=== PATIENT | female | born 1950 | race Caucasian/White ===

== ENCOUNTER → 2021-04-03 | Outpatient (CLI) | payer OTHER ==
[2021-04-04 09:54] LABS: Stool Occult Bld Immuno 1 Positive (NEGATIVE)
== END | disposition home or self-care (01) ==
LOC: LAB SHORT 09:50 → LAB FUT 03-19 14:00
PROVIDERS: Family Medicine
DX: Z12.11 Encounter for screening for malignant neoplasm of colon (principal)
CPT/HCPCS: G0328

== ENCOUNTER 2021-11-29 02:04 | Day surgery (SDC) | payer OTHER | END 2021-11-29 23:38 | disposition home or self-care (01) | LOC: WOUND 02:04 | DX: T81.31XA Disruption of external operation (surgical) wound, not elsewhere classified, initial encounter (principal); L97.825 Non-pressure chronic ulcer of other part of left lower leg with muscle involvement without evidence of necrosis; E05.00 Thyrotoxicosis with diffuse goiter without thyrotoxic crisis or storm; Z88.1 Allergy status to other antibiotic agents; Z87.891 Personal history of nicotine dependence; K74.60 Unspecified cirrhosis of liver; Z96.642 Presence of left artificial hip joint; E78.5 Hyperlipidemia, unspecified; I12.9 Hypertensive chronic kidney disease with stage 1 through stage 4 chronic kidney disease, or unspecified chronic kidney disease; N18.9 Chronic kidney disease, unspecified | CPT/HCPCS: A9270; G0463 ==

== ENCOUNTER 2021-12-06 02:01 | Day surgery (SDC) | payer OTHER | END 2021-12-06 23:36 | disposition home or self-care (01) | LOC: WOUND 02:01 | DX: T81.31XA Disruption of external operation (surgical) wound, not elsewhere classified, initial encounter (principal); L97.825 Non-pressure chronic ulcer of other part of left lower leg with muscle involvement without evidence of necrosis; S81.802A Unspecified open wound, left lower leg, initial encounter; X58.XXXA Exposure to other specified factors, initial encounter | CPT/HCPCS: A9270 ==

== ENCOUNTER 2021-12-13 01:13 | Day surgery (SDC) | payer OTHER ==
[2021-12-15] MEDS ORDERED: DOXAZOSIN MESYLA8 MG PO (10:59)
[2021-12-15] MEDS ORDERED: ZOCOR20 MG PO (10:59)
[2021-12-15] MEDS ORDERED: PROP60 PO (10:59)
[2021-12-15] MEDS ORDERED: METHI10 PO (10:59)
[2021-12-15] MEDS ORDERED: LISI5 PO (11:00)
== END 2021-12-13 23:04 | disposition home or self-care (01) ==
LOC: WOUND 01:13
DX: L97.825 Non-pressure chronic ulcer of other part of left lower leg with muscle involvement without evidence of necrosis (principal); S81.802D Unspecified open wound, left lower leg, subsequent encounter; X58.XXXD Exposure to other specified factors, subsequent encounter
CPT/HCPCS: G0463

== ENCOUNTER 2021-12-20 02:24 | Day surgery (SDC) | payer OTHER ==
[~2021-12-20 02:24] MED LIST: DOXAZOSIN MESYLA8 MG PO; LISI5 PO; METHI10 PO; PROP60 PO; ZOCOR20 MG PO
== END 2021-12-20 23:54 | disposition home or self-care (01) ==
LOC: WOUND 02:24
DX: S81.802A Unspecified open wound, left lower leg, initial encounter (principal); X58.XXXA Exposure to other specified factors, initial encounter; L97.825 Non-pressure chronic ulcer of other part of left lower leg with muscle involvement without evidence of necrosis
CPT/HCPCS: A9270

== ENCOUNTER 2021-12-27 01:00 | Day surgery (SDC) | payer OTHER | END 2021-12-27 23:10 | disposition home or self-care (01) | LOC: WOUND 01:00 | DX: L97.825 Non-pressure chronic ulcer of other part of left lower leg with muscle involvement without evidence of necrosis (principal); S81.802D Unspecified open wound, left lower leg, subsequent encounter | CPT/HCPCS: A9270 ==

== ENCOUNTER 2022-01-13 01:00 | Day surgery (SDC) | payer OTHER | END 2022-01-13 23:40 | disposition home or self-care (01) | LOC: WOUND 01:00 | DX: T81.31XA Disruption of external operation (surgical) wound, not elsewhere classified, initial encounter (principal) | CPT/HCPCS: A9270 ==

== ENCOUNTER 2022-01-24 02:09 | Day surgery (SDC) | payer OTHER | END 2022-01-24 12:17 | disposition home or self-care (01) | LOC: ATC 02:09 | DX: E86.0 Dehydration (principal); C03.1 Malignant neoplasm of lower gum; C77.0 Secondary and unspecified malignant neoplasm of lymph nodes of head, face and neck; I12.9 Hypertensive chronic kidney disease with stage 1 through stage 4 chronic kidney disease, or unspecified chronic kidney disease; N18.9 Chronic kidney disease, unspecified; E11.22 Type 2 diabetes mellitus with diabetic chronic kidney disease; E78.5 Hyperlipidemia, unspecified; D63.1 Anemia in chronic kidney disease; D63.0 Anemia in neoplastic disease; Z88.0 Allergy status to penicillin; Z88.1 Allergy status to other antibiotic agents | CPT/HCPCS: 96360; J7030 ==

== ENCOUNTER 2022-01-27 01:42 | Day surgery (SDC) | payer OTHER | END 2022-01-27 23:04 | disposition home or self-care (01) | LOC: WOUND 01:42 | DX: T81.32XA Disruption of internal operation (surgical) wound, not elsewhere classified, initial encounter (principal) | CPT/HCPCS: A9270 ==

== ENCOUNTER 2022-01-31 02:53 | Day surgery (SDC) | payer OTHER | END 2022-01-31 11:26 | disposition home or self-care (01) | LOC: ATC 02:53 | DX: C03.1 Malignant neoplasm of lower gum (principal); C77.0 Secondary and unspecified malignant neoplasm of lymph nodes of head, face and neck; D64.9 Anemia, unspecified; D70.1 Agranulocytosis secondary to cancer chemotherapy; I12.9 Hypertensive chronic kidney disease with stage 1 through stage 4 chronic kidney disease, or unspecified chronic kidney disease; E11.22 Type 2 diabetes mellitus with diabetic chronic kidney disease; N18.9 Chronic kidney disease, unspecified; E78.5 Hyperlipidemia, unspecified; Z96.642 Presence of left artificial hip joint; Z87.891 Personal history of nicotine dependence; Z88.0 Allergy status to penicillin; Z88.1 Allergy status to other antibiotic agents | CPT/HCPCS: 36415; 36430; 86850; 86900; 86901; 86923; J7040; P9016; Q5110 ==

== ENCOUNTER 2022-02-03 01:52 | Day surgery (SDC) | payer OTHER | END 2022-02-03 23:34 | disposition home or self-care (01) | LOC: WOUND 01:52 | DX: L97.825 Non-pressure chronic ulcer of other part of left lower leg with muscle involvement without evidence of necrosis (principal); E05.00 Thyrotoxicosis with diffuse goiter without thyrotoxic crisis or storm; S81.802D Unspecified open wound, left lower leg, subsequent encounter; T81.31XD Disruption of external operation (surgical) wound, not elsewhere classified, subsequent encounter; Y83.8 Other surgical procedures as the cause of abnormal reaction of the patient, or of later complication, without mention of misadventure at the time of the procedure | CPT/HCPCS: A9270; G0463 ==

== ENCOUNTER 2022-02-10 02:41 | Day surgery (SDC) | payer OTHER | END 2022-02-10 23:30 | disposition home or self-care (01) | LOC: WOUND 02:41 | DX: T81.32XA Disruption of internal operation (surgical) wound, not elsewhere classified, initial encounter (principal); L97.825 Non-pressure chronic ulcer of other part of left lower leg with muscle involvement without evidence of necrosis | CPT/HCPCS: A9270; G0463 ==

== ENCOUNTER 2022-02-14 00:24 | Day surgery (SDC) | payer OTHER | END 2022-02-14 12:21 | disposition home or self-care (01) | LOC: ATC 00:24 | DX: E56.0 Deficiency of vitamin E (principal); C03.1 Malignant neoplasm of lower gum; C77.0 Secondary and unspecified malignant neoplasm of lymph nodes of head, face and neck; E11.22 Type 2 diabetes mellitus with diabetic chronic kidney disease; I12.9 Hypertensive chronic kidney disease with stage 1 through stage 4 chronic kidney disease, or unspecified chronic kidney disease; N18.9 Chronic kidney disease, unspecified; E78.5 Hyperlipidemia, unspecified; Z96.642 Presence of left artificial hip joint; Z87.891 Personal history of nicotine dependence | CPT/HCPCS: J7030 ==

== ENCOUNTER 2022-02-17 02:42 | Day surgery (SDC) | payer OTHER | END 2022-02-17 23:20 | disposition home or self-care (01) | LOC: WOUND 02:42 | DX: T81.32XA Disruption of internal operation (surgical) wound, not elsewhere classified, initial encounter (principal); E05.00 Thyrotoxicosis with diffuse goiter without thyrotoxic crisis or storm | CPT/HCPCS: A9270 ==

== ENCOUNTER 2022-02-24 00:20 | Day surgery (SDC) | payer OTHER | END 2022-02-24 22:56 | disposition home or self-care (01) | LOC: WOUND 00:20 | DX: T81.32XA Disruption of internal operation (surgical) wound, not elsewhere classified, initial encounter (principal); T81.89XA Other complications of procedures, not elsewhere classified, initial encounter; L97.825 Non-pressure chronic ulcer of other part of left lower leg with muscle involvement without evidence of necrosis | CPT/HCPCS: G0463 ==

== ENCOUNTER 2022-03-03 02:59 | Day surgery (SDC) | payer OTHER | END 2022-03-03 23:41 | disposition home or self-care (01) | LOC: WOUND 02:59 | DX: T81.32XA Disruption of internal operation (surgical) wound, not elsewhere classified, initial encounter (principal); L97.825 Non-pressure chronic ulcer of other part of left lower leg with muscle involvement without evidence of necrosis | CPT/HCPCS: G0463 ==

== ENCOUNTER 2022-03-10 01:42 | Day surgery (SDC) | payer OTHER | END 2022-03-10 23:41 | disposition home or self-care (01) | LOC: WOUND 01:42 | DX: T81.32XA Disruption of internal operation (surgical) wound, not elsewhere classified, initial encounter (principal); L97.825 Non-pressure chronic ulcer of other part of left lower leg with muscle involvement without evidence of necrosis | CPT/HCPCS: G0463 ==

== ENCOUNTER 2022-03-17 01:55 | Day surgery (SDC) | payer OTHER | END 2022-03-17 23:34 | disposition home or self-care (01) | LOC: WOUND 01:55 | DX: L97.825 Non-pressure chronic ulcer of other part of left lower leg with muscle involvement without evidence of necrosis (principal); S81.802D Unspecified open wound, left lower leg, subsequent encounter; E05.00 Thyrotoxicosis with diffuse goiter without thyrotoxic crisis or storm; C41.1 Malignant neoplasm of mandible | CPT/HCPCS: G0463 ==

== ENCOUNTER 2022-03-24 01:19 | Day surgery (SDC) | payer OTHER | END 2022-03-24 23:40 | disposition home or self-care (01) | DX: T81.32XA Disruption of internal operation (surgical) wound, not elsewhere classified, initial encounter (principal) ==

== ENCOUNTER 2022-03-31 01:11 | Day surgery (SDC) | payer OTHER | END 2022-03-31 23:35 | disposition home or self-care (01) | LOC: WOUND 01:11 | DX: L97.825 Non-pressure chronic ulcer of other part of left lower leg with muscle involvement without evidence of necrosis (principal); S81.802A Unspecified open wound, left lower leg, initial encounter; X58.XXXA Exposure to other specified factors, initial encounter | CPT/HCPCS: G0463 ==

== ENCOUNTER 2022-06-11 07:57 | Day surgery (SDC) | payer OTHER ==
[~2022-06-11] VITALS: Ht 165.1 cm; Wt 70.0 kg
[~2022-06-11 07:57] MED LIST changes: +ACET500 PO; +FERSU300 PO; +ICAPS AREDS2 C1 EACH PO; +MULVITA PO; +VALA500 PO; +VITAMIN D310 MC4 PO
--- NOTE | 2022-06-11 09:07 | NUR ---
06/11/22 0907 Haroldo Freire HISTORY, CHART, MEDICATIONS AND ALLERGIES REVIEWED BEFORE START OF PROCEDURE. PATIENT CONFIRMS NPO STATUS AND AGREES WITH SCHEDULED PROCEDURE. 3-LEAD EKG REVIEWED WITH PHYSICIAN PRIOR TO START OF PROCEDURE. MONITOR INTACT WITH CONTINUOUS PULSE OXIMETRY,CAPNOGRAPHY, 3-LEAD EKG, INTERMITTENT BP. SUPPLEMENTAL O2 TO BE TITRATED THROUGHOUT PROCEDURE TO MAINTAIN O2 SATURATION ABOVE 90%. PATIENT DETERMINED TO BE ASA APPROPRIATE FOR PROPOFOL SEDATION PRIOR TO START OF PROCEDURE BY DR. SHETH.
--- NOTE | 2022-06-11 09:48 | NUR ---
PT ON RM AIR. BP LOW BUT PT DENIES ANY SYMPTOMS. PT ALERT AND COMMUNICATING APPROPRIATELY W STAFF AND SPOUSE. PT TOLERATING PO FLUIDS.
--- NOTE | 2022-06-11 10:08 | NUR ---
Discharge instructions reviewed with patient. Patient verbalizes understanding. Copy given to patient to take home. Patient States Post-Procedure ride home has been arranged. Discharged via wheelchair to private car for ride home.
== END 2022-06-11 23:42 | disposition home or self-care (01) ==
LOC: ORSCMMR 07:57 → ORD 09:00 → ORSCMMR 09:00
PROVIDERS: Surgery
PROC: 0DJD8ZZ Inspection of Lower Intestinal Tract, Via Natural or Artificial Opening Endoscopic (ICD-10-PCS; principal; 2022-06-11 09:00)
DX: K63.89 Other specified diseases of intestine (principal); R93.3 Abnormal findings on diagnostic imaging of other parts of digestive tract; K57.50 Diverticulosis of both small and large intestine without perforation or abscess without bleeding; Z85.818 Personal history of malignant neoplasm of other sites of lip, oral cavity, and pharynx; I12.9 Hypertensive chronic kidney disease with stage 1 through stage 4 chronic kidney disease, or unspecified chronic kidney disease; N18.32 Chronic kidney disease, stage 3b; D50.9 Iron deficiency anemia, unspecified; Z79.899 Other long term (current) drug therapy; Z87.891 Personal history of nicotine dependence
CPT/HCPCS: J2704; J7120

== ENCOUNTER 2022-06-12 06:56 | Inpatient (IN) | payer OTHER ==
[~2022-06-12] VITALS: Ht 165.1 cm; Wt 71.6 kg
--- NOTE | 2022-06-12 07:57 | NUR ---
Ambulatory in Day Surgery. History, Chart, Medications and Allergies reviewed before start of procedure. Patient confirms NPO status and agrees with scheduled surgery. Pre-Op teaching done. Pt verbalizes understanding. PT BELONGINGS PLACED UNDERNEATH GURNEY FOR SAFEKEEPING.
--- NOTE | 2022-06-12 18:33 | NUR ---
SHIFT SUMMARY PATIENT NEW ADMIT TO UNIT POST OP DAY [address] SHETH. ARRIVED TO ROOM ON BED. DROWSY BUT ANSWERED QUESTIONS APPROPRIATELY. REPORTED SEVERE ABD PAIN AND MILD NAUSEA. ABD WITH MIDLINE CONSUELO AND LAP SITES X3 ALL C/D/I. TOLERATEDING CLEAR LIQUIDS, NAUSEA IMPROVED AFTER JELLO. TOLERATING PO PAIN MEDS AND PAIN IS RATED 3/10 AT END OF SHIFT. SBA WITH FWW UP TO BSC. VOIDING WELL. HYPOACTIVE BT. POST VSS, WEANED O2 TO 2L NC AT THIS TIME. NOTED BRADYCARDIA AROUND 50 BPM. IV IN[address] AND [address] BRUCE GAVE ORDER FOR NO IV ACCES NEEDED. CHANGED ABX ORDERS TO PO. IV DC'D WNL.
[2022-06-13 04:21] LABS: BASOPHILS ABSOLUTE AUTO 0.01 K/mm3 (0.00-0.23); BASOPHILS PERCENT AUTO 0 % (0-2); EOSINOPHILS PERCENT AUTO 0 % (0-6); IMMATURE GRAN ABSOLUTE AUTO 0.02 K/mm3 (0.00-0.10); IMMATURE GRAN PERCENT AUTO 1 % (0-1); LYMPHOCYTES ABSOLUTE AUTO 0.41 K/mm3 (0.84-5.20); LYMPHOCYTES PERCENT AUTO 9 % (21-46); MONOCYTES ABSOLUTE AUTO 0.36 K/mm3 (0.16-1.47); MONOCYTES PERCENT AUTO 8 % (4-13); Mean Corpuscular HGB 30.4 pg (26.0-34.0); Mean Corpuscular HGB Conc 30.5 g/dL (31.5-36.5); Mean Corpuscular Volume 100 fL (80-100); Mean Platelet Volume 9.4 fL (9.1-12.4); NEUTROPHILS ABSOLUTE AUTO 3.56 K/mm3 (1.96-9.15); NEUTROPHILS PERCENT AUTO 82 % (41-73); Platelet Count 216 K/mm3 (150-400); RDW Coefficient Variation 14.8 % (11.7-14.2); RDW Standard Deviation 53.2 fL (35.1-46.3); Red Blood Cell Count 1.91 M/mm3 (3.80-5.20); White Blood Cell Count 4.36 K/mm3 (4.00-11.30)
[2022-06-13 04:31] LABS: Hemoglobin 5.8 g/dL (11.5-16.0)
[2022-06-13 05:23] LABS: Albumin, Blood 2.4 g/dL (3.4-5.0); Albumin/Globulin Ratio 0.8 (0.8-1.8); Bilirubin, Total 0.3 mg/dL (0.1-1.0); Bun/Creatinine Ratio 18.3 (12.0-20.0); Calcium, Blood 8.2 mg/dL (8.5-10.1); Creatinine, Blood 1.09 mg/dL (0.40-1.00); Globulin, Blood 3.1 g/dL (2.2-4.0); Potassium, Blood 3.9 mmol/L (3.5-5.5); Total Protein, Blood 5.5 g/dL (6.4-8.2)
--- NOTE | 2022-06-13 05:33 | NUR ---
HGB 5.8 NOTIFIED BY LAB OF CRITICAL LOW HGB 5.8. PT ASYMPTOMATIC WITH NO SIGNS OF BLEEDING, VSS. NOTIFIED DR SHETH WHO ORDERED REPEAT LABS FOR 1400 TODAY.
--- NOTE | 2022-06-13 05:37 | NUR ---
MEAT INSPECTOR SUMMARY PT IS POD 0 FOR R HEMICOLECTOMY. CONSUELO DRAIN TO MIDLINE ABD C/D/I WITH NO DRAINAGE NOTED. LAP SITES C/D/I WITH BANDAIDS. PT DENIES PASSING GAS BUT HAS AMBULATED TO BSC AND VOIDED SEVERAL TIMES TONIGHT. TOLERATING CLEAR LIQUID DIET WITH NO ISSUES. MEDICATED WITH NORCO 2 TABS FOR PAIN WITH GOOD PAIN CONTROL. VSS, WILL CONTINUE TO MONITOR.
--- NOTE | 2022-06-13 11:06 | NUR ---
"Spiritual Care | Pt. request Pt. is awake and welcomes my visit. Pt is pleasant but declines requesting spiritual care. Spouse then arrived. Pt. verbalized gratitude for the spiritual care visit."
[2022-06-13 14:16] LABS: Hematocrit 19.7 % (33.0-51.0)
--- NOTE | 2022-06-13 18:28 | NUR ---
SHIFT SUMMARY PT POD #1 FOR R HEMICOLECTOMY. PASSING SMALL AMOUNTS OF GAS BUT NO BM'S. ONE EPISODE OF EMESIS THIS SHIFT AND C/O SOME GERD. IND TO THE BSC. VSS. MIDLINE CONSUELO CDI.
--- NOTE | 2022-06-14 08:46 | NUR ---
SUMMARY PT MED WITH ZOFRAN X 2 THIS SHIFT.PT REQUESTS FOR APIGASTRIC DISCOMFORT-WHAT APPEARS TO PRESENT HEARTBURN/RELXUS.PT VERB UNDERSTANDING ZOFRAN IS FOR NAUSEA, BUT PT VERB IT HELPS ALTHOUGH NOT CURRENTLY C/O NAUSEA.
--- NOTE | 2022-06-14 17:46 | NUR ---
SUMMARY S/P R HEMICOLECTOMY, PT REPORTS HAVING MINIMAL PAIN, AMBULATES INDEPENDENTLY DOWN THE HALLS AND BATHROOM, GAIT STEADY AND TOLERATING WELL, REPORTS TOLERATING FULL LIQUIDS FAIRLY WELL, DENIES ANY NAUSEA, PASSING SOME GAS, OOB TO CHAIR X2 TODAY AND AMBULATED DOWN THE RECIO, NO ACUTE CHANGES THIS SHIFT.
--- NOTE | 2022-06-15 08:56 | NUR ---
SUMMARY PT CONT WITH C/O HEARTBURN WHILE EATING.REQUESITING SOMETHING OTHER THAN PRILOSEC.DAY RN AGREES TO FOLLOW UP ON REQUEST.
--- NOTE | 2022-06-15 11:45 | NUR ---
DR. SHETH NOTIFIED OF STOOL THAT APPEARED TO HAVE SOME BLOOD PRESENT, PLAN TO MONITOR FOR ANY CHANGES. DR. SHETH ALSO NOTIFIED OF CONTINUED HEART BURN. PER DR. SHETH MOBILIZE PT TO ENCOURAGE RETURN OF BOWEL FUNCTION. WILL CONTINUE TO MONITOR.
--- NOTE | 2022-06-15 17:18 | NUR ---
SHIFT SUMMARY PT IS POD#3 FROM LAP R HEMICOLECTOMY. PAIN MANAGED WITH PO PAIN MEDICATION. PT HAS ACTIVE BOWEL SOUNDS X4 QUADRANTS. SHE REPORTS PASSING FLATUS AND HAS HAD SEVERAL SMALL BMS. PT REPORTS SOME MUCOUS THAT IS BLOOD TINGED IN STOOL, DR. SHETH NOTIFIED. PT IS INDEPENDENT AND HAS BEEN AMBULATING IN THE HALWAYS. PT ADVANCED TO A REGULAR DIET AND IS TOLERATING WELL. WILL CONTINUE TO MONITOR.
--- NOTE | 2022-06-16 04:58 | NUR ---
SHIFT SUMMARY PT AOX4, POD3 R HEMICOLLECTOMY. CONSUELO DRESSING TO MIDLINE, C/D/I. LAP SITES X4 WNL. PATIENT TOELRATES PO INTAKE, PASSING FLATUS AND HAVING SMALL LOOSE STOOLS. PATIENT AMBULATES T/O SHIFT TO CHAIR AND BATHROOM. MEDICATED FOR PAIN WITH PO MEDS PER EMR. VSS, CALLS APROPRIATELY. SCD'S IN PLACE. WILL REPORT TO DAY RN.
--- NOTE | 2022-06-16 16:38 | NUR ---
SHIFT SUMMARY POD4 R ZINA COLLECTOMY, A/OX4, VSS, TOLERATING PO, PAIN WELL MANAGED, AMBULATING IN THE HALLS INDEPENDENTLY, PLAN FOR POSSIBLE DC TOMORROW PENDING IMPROVED GI OUTPUT. STARTED PO NYSTATIN FOR NEW THRUSH. PT REPORTS HAVING IT BEFORE AND TAKING TREATMENT FOR IT. NO ACUTE EVENTS THIS SHIFT, CALL LIGHT IN REACH, REPORT TO BE GIVEN TO ANOTHER DAY RN TO MONITOR UNTIL SHIFT CHANGE.
--- NOTE | 2022-06-17 06:50 | NUR ---
Patient is independent in room , walked in hallways. AAAX4. PRN [place] given Q4, bowel sounds present, patient had small bowel movement. Voiding well and tolerating P.O well, x1 zofran given.
[2022-06-17] MEDS ORDERED: Norco 5-325 Ta1 EACH PO (14:38)
[2022-06-17] MEDS ORDERED: NYSTATIN100000 U10 MT (14:50)
--- NOTE | 2022-06-17 15:36 | NUR ---
DISCHARGE SUMMARY POD5 ZINA COLECTOMY, A/OX4, VSS, TOLERATING PO, PAIN WELL MANAGED, INDEPENDENT IN HER ROOM AND HALLS USING FWW. CONSUELO DRESSING REMOVED BY SURGEON PRIOR TO DISCHARGE. DISCUSSED DISCHARGE INSTRUCTIONS WITH HER AND HER INCLUDING HOME CARE, FOLLOW UP APPOINTMENTS FOR STAPLE REMOVAL, MEDICATIONS INCLUDING NEW MEDS AND CHANGES WHICH WAS ALSO NOTED ON HER PAPERWORK, AND CONTACT INFORMATION SHOULD ANY QUESTIONS COME UP AFTER DISCHARGE. NO QUESTIONS AT THIE TIME, PT HAD NO IV ACCESS AT TIME OF DISCHARGE. PT EXCORTED OTU VIA WC TO PRIVATE AUTO TO GO HOME. HARD SCRIPT FOR PAIN GIVEN TO HER , NYSTATIN RINSE CALLED IN TO [facility].
[2022-06-18 13:36] LABS: Performing Lab SYMBIODX; Test Name TISSUE BIOPSY
== END 2022-06-17 15:20 | disposition home or self-care (01) | DRG 331 ==
LOC: SURS 06:56 → PRE IP 08:30 → SURS 13:03
PROVIDERS: Pathology Clinical Pathology/Laboratory Medicine; ADMIT Surgery
PROC: 0DTF4ZZ Resection of Right Large Intestine, Percutaneous Endoscopic Approach (ICD-10-PCS; principal; 2022-06-12 08:30)
DX: C18.0 Malignant neoplasm of cecum (principal); D50.9 Iron deficiency anemia, unspecified; K57.90 Diverticulosis of intestine, part unspecified, without perforation or abscess without bleeding; I12.9 Hypertensive chronic kidney disease with stage 1 through stage 4 chronic kidney disease, or unspecified chronic kidney disease; N18.32 Chronic kidney disease, stage 3b; E03.9 Hypothyroidism, unspecified; F17.210 Nicotine dependence, cigarettes, uncomplicated; K21.9 Gastro-esophageal reflux disease without esophagitis; E11.22 Type 2 diabetes mellitus with diabetic chronic kidney disease; J45.909 Unspecified asthma, uncomplicated; Z87.01 Personal history of pneumonia (recurrent); I25.2 Old myocardial infarction; Z28.21 Immunization not carried out because of patient refusal; Z88.0 Allergy status to penicillin; Z88.1 Allergy status to other antibiotic agents; Z79.899 Other long term (current) drug therapy
CPT/HCPCS: 36415; 80053; 85014; 85018; 85025; 86850; 86900; 86901; 88309; A9270; J1100; J1650; J1885; J1956; J2250; J2370; J2405; J2704; J3010; J7120

== ENCOUNTER → 2022-09-08 | Outpatient (CLI) | payer OTHER ==
[~2022-09-08] MED LIST changes: +NYSTATIN100000 U10 MT; +Norco 5-325 Ta1 EACH PO
== END ==
LOC: LAB 07:30 → LAB SHORT 07:30
DX: C79.89 Secondary malignant neoplasm of other specified sites (principal)
CPT/HCPCS: 88173

== ENCOUNTER 2022-09-17 11:08 | Day surgery (SDC) | payer OTHER ==
[~2022-09-17] VITALS: Ht 165.1 cm; Wt 73.1 kg
[2022-09-17 15:32] VITALS: BP 168/78
--- NOTE | 2022-09-17 15:58 | NUR ---
09/17/22 1558 Emre Sims REMOVED INTACT. SITE WNL.
== END 2022-09-17 16:05 | disposition home or self-care (01) ==
LOC: ORSCSDS 11:08
PROVIDERS: Otolaryngology
PROC: 0CT90ZZ Resection of Left Parotid Gland, Open Approach (ICD-10-PCS; principal; 2022-09-17 12:30)
PROC: 00BM0ZZ Excision of Facial Nerve, Open Approach (ICD-10-PCS; principal; 2022-09-17 12:30)
DX: C79.89 Secondary malignant neoplasm of other specified sites (principal); I12.9 Hypertensive chronic kidney disease with stage 1 through stage 4 chronic kidney disease, or unspecified chronic kidney disease; N18.30 Chronic kidney disease, stage 3 unspecified; E03.9 Hypothyroidism, unspecified; Z87.891 Personal history of nicotine dependence; Z79.899 Other long term (current) drug therapy
CPT/HCPCS: 88307; A9270; J0171; J2370; J2704; J3010; J7120

== ENCOUNTER 2024-05-09 07:07 | Day surgery (SDC) | payer OTHER ==
[~2024-05-09] VITALS: Ht 165.1 cm; Wt 70.1 kg
[~2024-05-09 07:07] MED LIST changes: +Lidocaine 1%-Epineph 1:100000 20 ML MDV ONE; +NS 500 ML IV ONE
[2024-05-09] MEDS ORDERED: ACET500 PO (07:37)
[2024-05-09] MEDS ORDERED: AREDS PRESERVISION (07:38)
[2024-05-09] MEDS ORDERED: MAGNESIUM (07:40)
[2024-05-09] MEDS ORDERED: GLUCHON PO (07:40)
--- NOTE | 2024-05-09 08:00 | NUR ---
05/09/24 0800 Samantha Rasmussen 3 ATTEMPTS FOR IV ACCESS. AMY MUÑOZ IN TO ASSESS/[facility] [place]
[2024-05-09] MEDS ORDERED: NS 500 ML IV ONE (08:08)
[2024-05-09] MEDS ORDERED: Midazolam HCl 1MG / ML 2ML Vial ONE (08:13)
[2024-05-09] MEDS ORDERED: propofoL 20 ML IV ONE (08:43)
--- NOTE | 2024-05-09 09:48 | NUR ---
05/09/24 0948 Julia Ferrer DC'D AT 0930. MEDIPORT LINE FLUSHED WITH 5ML OF HEPARIN 500MG PER POLICY. PT TOLERATED DC WELL. SITE COVERED WITH GAUZE AND TAPE.
[2024-05-09 10:03] VITALS: BP 158/64
== END 2024-05-09 09:45 | disposition home or self-care (01) ==
LOC: ORSCSDS 07:07
PROVIDERS: Orthopaedic Surgery
PROC: 01N54ZZ Release Median Nerve, Percutaneous Endoscopic Approach (ICD-10-PCS; principal; 2024-05-09 08:45)
DX: G56.01 Carpal tunnel syndrome, right upper limb (principal); I12.9 Hypertensive chronic kidney disease with stage 1 through stage 4 chronic kidney disease, or unspecified chronic kidney disease; E11.22 Type 2 diabetes mellitus with diabetic chronic kidney disease; N18.9 Chronic kidney disease, unspecified; E05.90 Thyrotoxicosis, unspecified without thyrotoxic crisis or storm; E03.9 Hypothyroidism, unspecified; E78.5 Hyperlipidemia, unspecified; Z79.899 Other long term (current) drug therapy
CPT/HCPCS: J1642; J2250; J2704; J7040

== ENCOUNTER 2025-03-21 09:38 | Day surgery (SDC) | payer OTHER ==
[~2025-03-21] VITALS: Ht 162.6 cm; Wt 74.5 kg
[2025-03-21] VITALS (18 sets, daily range): BP systolic 120–209; BP diastolic 53–97
[~2025-03-21 09:38] MED LIST changes: +AREDS PRESERVISION; +GLUCHON PO; -Lidocaine 1%-Epineph 1:100000 20 ML MDV ONE; +MAGNESIUM; -NS 500 ML IV ONE
[2025-03-21] MEDS ORDERED: METF500 PO (10:12)
--- NOTE | 2025-03-21 10:42 | NUR ---
Patient States Post-Procedure ride home has been arranged. Patient confirms NPO status and agrees with scheduled surgery. Patient states colon prep results clear. Pre-Op teaching done. Pt verbalizes understanding.
--- NOTE | 2025-03-21 12:00 | NUR ---
03/21/25 1200 Malena Velasquez CONFIRMED AND REVIEWED H&P, MEDCICATIONS, ALLERGIES, MEDICAL HISTORY, RESPIRATORY HISTORY, VITAL SIGNS, 3-LEAD EKG, CONSENTS, AND PHYSICIAN ORDERS. PATIENT CONFIRMS NPO STATUS AND AGREES WITH SCHEDULED PROCEDURE. MONITOR INTACT WITH CONTINUOUS PULSE OXIMETRY, CAPNOGRAPHY, 3-LEAD EKG, INTERMITTENT BP. SUPPLEMENTAL O2 TO BE TITRATED THROUGHOUT PROCEDURE TO MAINTAIN O2 SATURATION ABOVE 90%. PATIENT DETERMINED TO BE ASA APPROPRIATE FOR PROPOFOL SEDATION PRIOR TO START OF PROCEDURE BY DR. SHETH. ANESTHESIA CONSULT OBTAINED FOR AIRWAY ASSESSMENT. PER DR. SHABAZZ PATIENT CLEARED TO HAVE PROCEDURE WITH DEEP SEDATION BY AN RN.
--- NOTE | 2025-03-21 12:08 | NUR ---
Discharged via wheelchair to private car for ride home. Discharge instructions reviewed with patient. Patient verbalizes understanding. Copy given to patient to take home.
== END 2025-03-21 22:00 | disposition home or self-care (01) ==
LOC: ORSCMMR 09:38 → ORD 11:00 → ORSCMMR 11:00
PROVIDERS: Surgery
PROC: 0DJD8ZZ Inspection of Lower Intestinal Tract, Via Natural or Artificial Opening Endoscopic (ICD-10-PCS; principal; 2025-03-21 11:00)
DX: Z12.11 Encounter for screening for malignant neoplasm of colon (principal); K57.30 Diverticulosis of large intestine without perforation or abscess without bleeding; Z85.038 Personal history of other malignant neoplasm of large intestine; E11.22 Type 2 diabetes mellitus with diabetic chronic kidney disease; I12.9 Hypertensive chronic kidney disease with stage 1 through stage 4 chronic kidney disease, or unspecified chronic kidney disease; N18.9 Chronic kidney disease, unspecified; E03.9 Hypothyroidism, unspecified; G25.0 Essential tremor; Z79.84 Long term (current) use of oral hypoglycemic drugs; Z79.899 Other long term (current) drug therapy; Z87.891 Personal history of nicotine dependence
CPT/HCPCS: 82947; J2704; J7120